=== PATIENT | male | born 1965 | race Caucasian/White ===

== ENCOUNTER 2018-10-23 12:09 | Outpatient (CLI) | payer BC ==
--- NOTE | 2018-10-23 15:40 | Diagnostic Imaging Report ---
Indication: Lower back pain Technique: 4 views of the lumbar spine Comparison: None Findings: Vertebral body heights are preserved. There are degenerative changes of the T11-12 disc. The lumbar vertebral discs are preserved. No acute fractures. No dislocations. The pedicles are intact. The sacral arches are preserved. The sacroiliac joint spaces are preserved. There is facet arthrosis at L5-S1 on the right Impression: No acute bony trauma Mild degenerative changes as described
== END 2018-10-23 14:09 | disposition home or self-care (01) ==
LOC: RAD 12:09
DX: M54.5 Low back pain (principal); M47.9 Spondylosis, unspecified
CPT/HCPCS: 72114

== ENCOUNTER 2018-12-06 13:58 | Inpatient (IN) | payer OTHER ==
[~2018-12-06] VITALS: Ht 185.4 cm; Wt 89.8 kg
--- NOTE | 2019-01-12 18:48 | History & Physical ---
History and Physical History & Physicial Full H&P dictated #[id number]. 53 yo male with well-controlled HIV infection admitted for second of five scheduled doses of IP per [facility] [id number]. He is feeling well. O: HEENT: nc/at Lungs: clear Cor: reg Abd: soft, NT Neuro: non-focal Ext: no c/c/e Skin: no rashes A: HIV, well controlled h/o anal dysplasia h/o HSV Participation in clinical trial P: Admit per protocol; plan on AM infusion. All pt questions were addressed; he gives consent and wishes to proceed. Rikki Landis MD Jan 12, 2019 18:48
--- NOTE | 2019-01-12 20:00 | NUR ---
NURSE NOTES: Pt is a direct admit from home for clinical trial. No acute distress noted. Pt is awake , alert, ambulatory. Vitals stable. Admission process initiated. Orders acknowledged from Dr. Landis. Blood taken down to lab for cbc. Pt's med's submitted to hospital pharmacy to dispense as ordered.Pt is given a sandwich to eat. Pt appears to be comfortable in his bed. Bed l;ow ion position,side rails up and call light within reach. Pt will be monitored.
[2019-01-12 20:30] LABS: EOSINOPHILS % (AUTO) 2.8 % (0.0-3.0); HEMATOCRIT 45.9 % (42.0-52.0); HEMOGLOBIN 15.9 G/DL (14.2-18.0); LYMPHOCYTES % (AUTO) 35.1 % (20.0-45.0); MEAN CORPUSCULAR VOLUME 93 FL (80-99); MONOCYTES % (AUTO) 9.9 % (1.0-10.0); NEUTROPHILS % (AUTO) 51.1 % (45.0-75.0); PLATELET COUNT 275 K/UL (150-450); RED BLOOD COUNT 4.91 M/UL (4.70-6.10); RED CELL DISTRIBUTION WIDTH 10.8 % (11.6-14.8); WHITE BLOOD COUNT 6.4 K/UL (4.8-10.8)
[2019-01-12 20:52] VITALS: BP 132/85
--- NOTE | 2019-01-12 22:45 | History and Physical Report ---
DATE OF ADMISSION: 01/12/2019 CHIEF COMPLAINT: The patient is electively admitted for continuing participation in [employer] clinical protocol [id number]. HISTORY OF PRESENT ILLNESS: The patient is a 53-year-old man followed by Dr. Alok Live for HIV infection. This has been well controlled on Odefsey. He has never had a history of virologic failure. PAST MEDICAL HISTORY: He was diagnosed with HIV a decade ago. He has been on Odefsey for several years with good virologic control. The patient also has a history of anal dysplasia, prostate enlargement, vitamin D deficiency, recurrent herpes simplex, and asymptomatic diverticulosis. FAMILY HISTORY: The patient is adopted. SOCIAL HISTORY: The patient does not smoke. 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 ALLERGIES: No known drug allergies. MEDICATIONS: Include Odefsey one tablet daily, Valtrex 1 g once a day, venlafaxine 75 mg a day, and finasteride 5 mg a day. REVIEW OF SYSTEMS: Denies headache. Denies fever. Denies chills. Denies cough or shortness of breath. No nausea, vomiting, or diarrhea. No chest pain. No visual changes. No auditory changes. PHYSICAL EXAMINATION: VITAL SIGNS: Pending. GENERAL: Revealed a well-nourished and well-developed male in no acute distress. He is alert and oriented x4. HEENT: Normocephalic, atraumatic. Pupils equal and round. Oropharynx was without thrush. NECK: Supple. There is no cervical or axillary adenopathy. LUNGS: Clear to auscultation. HEART: Regular rhythm without murmurs. ABDOMEN: Soft and nontender. No hepatosplenomegaly. EXTREMITIES: Without cyanosis, clubbing, or edema. There are no rashes present today. LABORATORY DATA: Pending. IMPRESSION: 1. HIV infection, well controlled. 2. Elective admission for participation in the above-captioned trial. 3. History of herpes simplex. 4. History of anal dysplasia. 5. Vitamin D deficiency, treated. 6. Hyperlipidemia. 7. Prostate enlargement. DISCUSSION: The patient is a very pleasant 53-year-old man who is electively admitted for his second of 5 infusions of the investigational product disease (versus placebo). Risks and benefits were discussed with the patient in detail. The patient verbalized understanding and his consent to proceed with the clinical trial. PLAN: 1. Manage per protocol. 2. We will plan on infusion tomorrow morning with the following two nights observation in the hospital. Rikki Landis M.D. DR: ALICIA JOB#: [id number] CC: Rikki Landis M.D.; [address] [place] [address], [address]; ; [place] [address], ; Fax#: [phone] [facility]
[2019-01-13] VITALS: BP 123/69
--- NOTE | 2019-01-13 01:00 | NUR ---
NURSE NOTES: Pt is in bed, asleep. No acute distress noted.
[2019-01-13] MEDS ORDERED: VALACYCLOVIR500 MG ORAL (02:53)
[2019-01-13] MEDS ORDERED: odefsey PO (02:56)
[2019-01-13] MEDS ORDERED: VENLAFAXINE HCL75 MG ORAL (02:58)
[2019-01-13] MEDS ORDERED: EFFEXOR XR150 MG ORAL (03:02)
[2019-01-13] MEDS ORDERED: FINASTERIDE5 MG ORAL (03:03)
[2019-01-13 04:00] VITALS: BP 127/75
--- NOTE | 2019-01-13 07:10 | NUR ---
HAND-OFF: Report given to Jessi Mcdonough RN.
[2019-01-13] MEDS ORDERED: Investigational Drug 150 MG in NS 48 ML IV ONE (08:00)
--- NOTE | 2019-01-13 08:23 | NUR ---
NURSE NOTES: Pt in bed a/o x 4 in no acute distress. Pt aware he is here for clinical trial, pt of Dr. Landis. Pt denies pain/discomfort at this time. Dr. Landis at bedside and administered trial medication. Pt left in bed in low position, call light within reach. Will continue to monitor.
[2019-01-13 12:00] VITALS: BP 116/75
--- NOTE | 2019-01-13 12:11 | NUR ---
CASE MANAGEMENT:REVIEW 53 YR OLD MALE HERE FOR CLINICAL TRAIL IS: Close CLINICAL PROTOCOL [id number] : MED/SURG UNIT
[2019-01-13] MEDS: ODEFSEY ORAL SCH (12:29)
[2019-01-13] MEDS: VENLAFAXINE ORAL SCH (12:30)
[2019-01-13] MEDS: VALACYCLOVIR 1 GM ORAL SCH (12:30)
[2019-01-13] MEDS: FINASTERIDE 5 MG ORAL SCH (12:31)
[2019-01-13] MEDS: VENLAFAXINE 75 MG ORAL SCH (12:31)
--- NOTE | 2019-01-13 14:57 | General Progress Note ---
Progress Note Progress Note S: Patient doing well with no new complaints. Tolerated infusion of IP this morning w/o observed AEs O: VSS, Afebrile HEENT: nc/at Neck: supple Lungs: clear to auscultation Cor: reg Abd: soft, NT Ext: no c/c/e Neuro: no focal motor or sensory deficits Labs Test 01/12/19 20:15 White Blood Count 6.4 K/UL (4.8-10.8) Red Blood Count 4.91 M/UL (4.70-6.10) Hemoglobin 15.9 G/DL (14.2-18.0) Hematocrit 45.9 % (42.0-52.0) Mean Corpuscular Volume 93 FL (80-99) Mean Corpuscular Hemoglobin 32.3 PG (27.0-31.0) Mean Corpuscular Hemoglobin Concent 34.6 G/DL (32.0-36.0) Red Cell Distribution Width 10.8 % (11.6-14.8) Platelet Count 275 K/UL (150-450) Mean Platelet Volume 5.3 FL (6.5-10.1) Neutrophils (%) (Auto) 51.1 % (45.0-75.0) Lymphocytes (%) (Auto) 35.1 % (20.0-45.0) Monocytes (%) (Auto) 9.9 % (1.0-10.0) Eosinophils (%) (Auto) 2.8 % (0.0-3.0) Basophils (%) (Auto) 1.0 % (0.0-2.0) A: 1) Participation in [id number] clinical trial 2) HIV well controlled 3) h/o anal dysplasia 4) h/o HSV 5) depression in remission P: 1) Continue management per clinical trial 2) Anticipate d/c in AM 01/15 3) check CBC in AM locally Rikki Landis MD Jan 13, 2019 14:57
[2019-01-13 16:00] VITALS: BP 108/70
--- NOTE | 2019-01-13 19:30 | NUR ---
NURSE NOTES: Received report from DARRIUS Bowen. Received pt in bed, AOX4, denies pain, no distress noted. Safety measures maintained. Bed in lowest position and locked, side rails up x 2, call light within reach. Will continue to monitor.
--- NOTE | 2019-01-13 19:48 | NUR ---
HAND-OFF: Report given to Porsha Maradiaga RN. Pt left in bed in stable condition, a/o x 4, in no acute distress. Call light within reach
[2019-01-14 02:00] VITALS: BP 122/77
--- NOTE | 2019-01-14 07:09 | NUR ---
HAND-OFF: Report given to DARRIUS Bowen. Pt in stable condition.
[2019-01-14 08:00] VITALS: BP 130/82
--- NOTE | 2019-01-14 08:17 | NUR ---
NURSE NOTES: Pt in bed a/o x 4 in no acute distress having breakfast, bs normoactive, lung sounds clear, . Pt aware he is here for clinical trial, pt of Dr. Landis. Pt denies pain/discomfort at this time. Pt left in bed in low position, call light within reach. Will continue to monitor.
[2019-01-14 08:40] LABS: BASOPHILS % (AUTO) 0.8 % (0.0-2.0); HEMATOCRIT 47.2 % (42.0-52.0); HEMOGLOBIN 15.7 G/DL (14.2-18.0); MEAN CORPUSCULAR VOLUME 94 FL (80-99); NEUTROPHILS % (AUTO) 62.1 % (45.0-75.0); PLATELET COUNT 261 K/UL (150-450); RED BLOOD COUNT 5.03 M/UL (4.70-6.10); RED CELL DISTRIBUTION WIDTH 10.7 % (11.6-14.8); WHITE BLOOD COUNT 6.2 K/UL (4.8-10.8)
[2019-01-14] MEDS: VENLAFAXINE ORAL SCH (09:16)
[2019-01-14] MEDS: VENLAFAXINE 75 MG ORAL SCH (09:17)
[2019-01-14] MEDS: ODEFSEY ORAL SCH (09:18)
[2019-01-14] MEDS: FINASTERIDE 5 MG ORAL SCH (09:18)
[2019-01-14] MEDS: VALACYCLOVIR 1 GM ORAL SCH (09:19)
[2019-01-14 12:02] VITALS: BP 125/81
--- NOTE | 2019-01-14 12:46 | General Progress Note ---
Progress Note Progress Note S: Patient doing well, no new complaints O: VSS Afebrile HEENT: nc/at Lungs: clear Cor: reg no murmur Abd: soft, NT, no HSM Ext: no c/c/e Skin: no rashes Labs Test 01/12/19 20:15 01/14/19 08:15 White Blood Count 6.4 K/UL (4.8-10.8) 6.2 K/UL (4.8-10.8) Red Blood Count 4.91 M/UL (4.70-6.10) 5.03 M/UL (4.70-6.10) Hemoglobin 15.9 G/DL (14.2-18.0) 15.7 G/DL (14.2-18.0) Hematocrit 45.9 % (42.0-52.0) 47.2 % (42.0-52.0) Mean Corpuscular Volume 93 FL (80-99) 94 FL (80-99) Mean Corpuscular Hemoglobin 32.3 PG (27.0-31.0) 31.3 PG (27.0-31.0) Mean Corpuscular Hemoglobin Concent 34.6 G/DL (32.0-36.0) 33.3 G/DL (32.0-36.0) Red Cell Distribution Width 10.8 % (11.6-14.8) 10.7 % (11.6-14.8) Platelet Count 275 K/UL (150-450) 261 K/UL (150-450) Mean Platelet Volume 5.3 FL (6.5-10.1) 5.7 FL (6.5-10.1) Neutrophils (%) (Auto) 51.1 % (45.0-75.0) 62.1 % (45.0-75.0) Lymphocytes (%) (Auto) 35.1 % (20.0-45.0) 28.0 % (20.0-45.0) Monocytes (%) (Auto) 9.9 % (1.0-10.0) 6.0 % (1.0-10.0) Eosinophils (%) (Auto) 2.8 % (0.0-3.0) 3.0 % (0.0-3.0) Basophils (%) (Auto) 1.0 % (0.0-2.0) 0.8 % (0.0-2.0) A: 1) Participation in clinical trial - no AEs noted 2) HIV, well controlled 3) h/o anal dysplasia 4) h/o HSV 5) depression, controlled P: 1) Continue to observe per [id number] protocol 2) anticipate discharge in morning 3/ if stable Rikki Landis MD Jan 14, 2019 12:46
--- NOTE | 2019-01-14 13:02 | NUR ---
CASE MANAGEMENT:REVIEW 01/14/19 CLINICAL TRIAL
--- NOTE | 2019-01-14 15:47 | NUR ---
NURSE NOTES: Report given to Анна charge nurse, pt left in stable condition, a/o x 4 in no acute distress.
[2019-01-14 16:00] VITALS: BP 130/88
--- NOTE | 2019-01-14 16:00 | NUR ---
NURSE NOTES: Receive patient alert and oriented,sitting up in bed on personal computer,no complaints at this time,call light within reach.
--- NOTE | 2019-01-14 19:00 | NUR ---
NURSE NOTES: Patient resting,no complaints offered at this time when asked.Call light within reach.
--- NOTE | 2019-01-14 19:20 | NUR ---
HAND-OFF: Report given to EDWARDO RIZO.
--- NOTE | 2019-01-14 19:30 | NUR ---
NURSE NOTES: Received report from DARRIUS Fan. Received pt sitting up in bed, AOX4, denies any pain, no distress noted. Bed in lowest position and locked, side rails up x 2, call light within reach. Will continue to monitor.
[2019-01-14 20:00] VITALS: BP 132/88
--- NOTE | 2019-01-15 07:13 | NUR ---
NURSE NOTES: Endorsed to DARRIUS Cuello. Discharge instructions and own medications given to patient, verbalized understanding. Patient in stable condition.
--- NOTE | 2019-01-15 07:16 | NUR ---
HAND-OFF: Report given to DARRIUS Cuello.
--- NOTE | 2019-01-15 08:00 | NUR ---
NURSE NOTES:RECEIVED PATIENT AWAKE A/OX4,ROOM AIR, ON INITIAL ROUNDS,NO C/O PAIN.FOR DISCHARGE,D/C INSTRUCTIONS,HOME MEDS,BELONGINGS GIVEN BY NIGHT RN(EDWARDO ORTA)
[2019-01-15 08:23] LABS: EOSINOPHILS % (AUTO) 2.9 % (0.0-3.0); HEMATOCRIT 47.8 % (42.0-52.0); HEMOGLOBIN 16.4 G/DL (14.2-18.0); LYMPHOCYTES % (AUTO) 32.1 % (20.0-45.0); MEAN CORPUSCULAR VOLUME 93 FL (80-99); PLATELET COUNT 282 K/UL (150-450); RED BLOOD COUNT 5.16 M/UL (4.70-6.10); WHITE BLOOD COUNT 6.3 K/UL (4.8-10.8)
[2019-01-15] MEDS ORDERED: Tubing IV Secondary IV ONE (09:19)
[2019-01-15] MEDS ORDERED: NS 275ml ONE (09:19)
--- NOTE | 2019-01-15 09:20 | NUR ---
NURSE NOTES:PATIENT WENT HOME STABLE.
--- NOTE | 2019-01-21 22:46 | Discharge Summary ---
DATE OF ADMISSION: 01/12/2019 DATE OF DISCHARGE: 01/15/2019 DISCHARGE DIAGNOSES: 1. Human immunodeficiency virus infection, well controlled. 2. Elective admission for participation in [employer] clinical trial [id number]. 3. History of vitamin D deficiency, treated. 4. Hyperlipidemia. 5. Prostate enlargement. 6. History of anal dysplasia. HISTORY OF PRESENT ILLNESS/HOSPITAL COURSE: The patient was admitted electively on 01/12/2019 for the second of 5 planned biweekly infusions of investigational agent (either [id number] or placebo). The patient was infused on the 01/13/2019 and did well. There were no major adverse events. The patient was monitored closely and was discharged on 01/15/2019 in good condition. MEDICATIONS AT DISCHARGE: Included Odefsey 1 tablet daily, Valtrex 1 gram once a day, venlafaxine 75 mg a day, and finasteride 5 mg a day. Follow-up will be in the clinic in 2 days duration. Rikki Landis M.D. DR: CATHERINE JOB#: [id number] CC: [email or web address]
== END 2019-01-15 09:20 | disposition home or self-care (01) | DRG 977 ==
LOC: 3E 01-12 19:13
DX: B20 Human immunodeficiency virus [HIV] disease (principal); Z00.6 Encounter for examination for normal comparison and control in clinical research program; E78.5 Hyperlipidemia, unspecified; N40.0 Benign prostatic hyperplasia without lower urinary tract symptoms; K57.90 Diverticulosis of intestine, part unspecified, without perforation or abscess without bleeding
CPT/HCPCS: 36415; 85025

== ENCOUNTER 2018-12-29 14:49 | Inpatient (IN) | payer OTHER ==
[~2018-12-29] VITALS: Ht 185.4 cm; Wt 89.6 kg
--- NOTE | 2018-12-29 15:30 | NUR ---
NURSE NOTES: Instructed by Dr Landis's nurse Alessandro that her and Dr Landis's nurses will do all vitals and IV insertion. Will continue to monitor.
--- NOTE | 2018-12-29 15:30 | NUR ---
NURSE NOTES: Patient admitted to unit as ordered for clinical trials. Patient is stable, no s/s acute distress. Denies pain at this time. No SOB or discomfort noted at this time. Patient oriented to room, unit, and nurses. Patient instructed to use call light for assistance, verbalized understanding. All orders noted. Patient in bed in locked position and call light within reach. All needs met at this time. Will continue to monitor.
--- NOTE | 2018-12-29 15:54 | History & Physical ---
History and Physical History & Physicial Full note dictated #[id number] 53 yo with well controlled HIV on Odefsey electively admitted for participation in [id number]. He feels well. PE: T 98.1 HEENT: nc/at Lungs: clear Cor: reg Abd: soft, NT Neuro: non-focal Skin: very faint areas of hypopigmentation on flanks of trunk, much improved compared to 2 weeks ago A: 1) HIV, well-controlled 2) LUTS 3) depression, controlled 4) HSV P: Will proceed per protocol; risks and benefits discussed in detail and pt verbalized understanding and wishes to go forward. We will plan on infusing tomorrow. Rikki Landis MD Dec 29, 2018 15:53
[2018-12-29 16:57] LABS: BASOPHILS % (AUTO) 1.3 % (0.0-2.0); EOSINOPHILS % (AUTO) 1.4 % (0.0-3.0); HEMATOCRIT 47.4 % (42.0-52.0); HEMOGLOBIN 16.2 G/DL (14.2-18.0); LYMPHOCYTES % (AUTO) 39.3 % (20.0-45.0); MEAN CORPUSCULAR VOLUME 93 FL (80-99); MONOCYTES % (AUTO) 8.2 % (1.0-10.0); NEUTROPHILS % (AUTO) 49.8 % (45.0-75.0); PLATELET COUNT 270 K/UL (150-450); RED BLOOD COUNT 5.08 M/UL (4.70-6.10); RED CELL DISTRIBUTION WIDTH 10.8 % (11.6-14.8); WHITE BLOOD COUNT 6.2 K/UL (4.8-10.8)
[2018-12-29] MEDS ORDERED: ODEFSEY ORAL SCH (18:00)
--- NOTE | 2018-12-29 19:15 | History and Physical Report ---
DATE OF ADMISSION: 12/29/2018 CHIEF COMPLAINT: The patient is electively admitted for participation in [employer] protocol, [id number]. HISTORY OF PRESENT ILLNESS: The patient is a 53-year-old man followed by my associate, Dr. Alok Live for HIV infection, which is well controlled on Odefsey. He has been Dr. Live's patient for a number of years and has elected to participate in the above clinical trial. PAST MEDICAL HISTORY: The patient was diagnosed with HIV a decade ago or so. He has been on Odefsey for several years and it has been undetectable. There is a history of anal dysplasia, prostate enlargement, vitamin D deficiency, recurrent herpes simplex, and diverticulitis, which is not active. FAMILY HISTORY: The patient is adopted. SOCIAL HISTORY: The patient does not smoke. 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 ALLERGIES: No known drug allergies. MEDICATIONS: As an outpatient include Odefsey one daily, Valtrex 1 g once a day, venlafaxine 75 mg daily, and finasteride 5 mg once a day. REVIEW OF SYSTEMS: He denies fever, headache, or visual changes. Denies oral pain. Denies cough or shortness of breath. Denies chest pain. No nausea, vomiting, or diarrhea. No dysuria or hematuria. The patient reports a mild skin rash in his trunk a couple weeks ago, which has resolved. PHYSICAL EXAMINATION: VITAL SIGNS: Temperature of 98.1, heart rate of 86, blood pressure of 112/73. His weight was 197.6 pounds and his respirations were 15 and nonlabored. HEENT: Normocephalic and atraumatic. Pupils are equal, round, and reactive. Oropharynx was without thrush. NECK: Supple. LUNGS: Clear to auscultation. HEART: Regular rhythm without murmurs or gallops. ABDOMEN: Soft and nontender. There is no hepatosplenomegaly noted. EXTREMITIES: Without cyanosis, clubbing, or edema. NEUROLOGIC: Grossly nonfocal. SKIN: For the most part, normal. There was no significant rash present at the location the patient reported his rash for a couple weeks ago. LABORATORY DATA: Pending. IMPRESSION: 1. HIV infection, well controlled. 2. Anal dysplasia. 3. Herpes simplex, recurrent. 4. Vitamin D deficiency, treated. 5. Hyperlipidemia. 6. Depression. 7. Prostate enlargement. 8. Participation in clinical research trial. DISCUSSION: The patient is a pleasant 53-year-old man who is now electively admitted for participation in [id number]. I have discussed risks and benefits with the patient in detail. The patient has elected to proceed with drug study. He will be admitted now and infused tomorrow morning and will spend two nights in the hospital after that. PLAN: 1. Management per protocol. 2. Continue outpatient medications as listed above. Rikki Landis M.D. DR: MIKAL JOB#: [id number] CC: Rikki Landis M.D.; [address] [place] [address], [facility] [address]; [place] [address]; Fax#: [phone]
--- NOTE | 2018-12-29 19:40 | NUR ---
NURSE NOTES: Report taken from DARRIUS Santiago. Patient A&Ox4 in bed. No signs of distress on room air. Here for Clinical trial. Per MD order, no vitals on patient overnight. IV line access will be put in the AM, per trial nurse DARRIUS Mistry. Monitor overnight. Call light within reach, bed in lowest position.
--- NOTE | 2018-12-29 19:49 | NUR ---
HAND-OFF: Report given to Braxton RIZO. Patient is stable.
[2018-12-29] MEDS ORDERED: VALACYCLOVIR 1 GM ORAL SCH (21:00)
[2018-12-29] MEDS ORDERED: VENLAFAXINE ORAL SCH (21:00)
--- NOTE | 2018-12-30 07:15 | NUR ---
HAND-OFF: Report given to DARRIUS Richards.
--- NOTE | 2018-12-30 07:26 | NUR ---
NURSE NOTES: ASLEEP. IN NO APPARENT DISTRESS. NO PAIN.
[2018-12-30 08:00] VITALS: BP 121/73
[2018-12-30] MEDS ORDERED: Investigational Drug 150 MG in NS 48 ML IV ONE (08:00)
[2018-12-30] MEDS ORDERED: FINASTERIDE 5 MG ORAL SCH ×2 (09:00→12:00)
[2018-12-30] MEDS ORDERED: ODEFSEY ORAL SCH (09:00)
[2018-12-30] MEDS ORDERED: VENLAFAXINE 150 MG ORAL SCH (12:00)
[2018-12-30] MEDS ORDERED: TENOFOVIR ALAFENAMIDE ORAL SCH (12:00)
[2018-12-30] MEDS ORDERED: VALACYCLOVIR 1 GM ORAL SCH (12:00)
[2018-12-30] MEDS ORDERED: EMTRICITABINE ORAL SCH (12:00)
[2018-12-30] MEDS ORDERED: RILPIVIRINE ORAL SCH (12:00)
[2018-12-30] MEDS ORDERED: Venlafaxine XR 75mg cap ORAL SCH (12:30)
--- NOTE | 2018-12-30 13:54 | NUR ---
*-* NO INSURANCE INFORMATION IN THE BAR TO SEND CLINICALS OR REVIEWS *-*
--- NOTE | 2018-12-30 15:30 | General Progress Note ---
Progress Note Progress Note S: pt had infusion of IP this morning without any AEs noted. He feels well. O: VSS Afebrile HEENT: nc/at Neck: supple Lungs: clear Cor: reg no murmur Abd: soft, NT BS normal Ext: no c/c/e Neuro: non-focal Labs Test 12/29/18 15:00 White Blood Count 6.2 K/UL (4.8-10.8) Red Blood Count 5.08 M/UL (4.70-6.10) Hemoglobin 16.2 G/DL (14.2-18.0) Hematocrit 47.4 % (42.0-52.0) Mean Corpuscular Volume 93 FL (80-99) Mean Corpuscular Hemoglobin 32.0 PG (27.0-31.0) Mean Corpuscular Hemoglobin Concent 34.3 G/DL (32.0-36.0) Red Cell Distribution Width 10.8 % (11.6-14.8) Platelet Count 270 K/UL (150-450) Mean Platelet Volume 5.5 FL (6.5-10.1) Neutrophils (%) (Auto) 49.8 % (45.0-75.0) Lymphocytes (%) (Auto) 39.3 % (20.0-45.0) Monocytes (%) (Auto) 8.2 % (1.0-10.0) Eosinophils (%) (Auto) 1.4 % (0.0-3.0) Basophils (%) (Auto) 1.3 % (0.0-2.0) A: 1) Participation in [id number] 2) HIV, well controlled on Odefsey 3) depression 4) h/o HSV P: 1) continue to observe per protocol; anticipate discharge 01/01 Rikki Landis MD Dec 30, 2018 15:30
[2018-12-30 16:00] VITALS: BP 119/75
--- NOTE | 2018-12-30 19:00 | NUR ---
NURSE NOTES: RESTING. IN NO APPARENT DISTRESS.
--- NOTE | 2018-12-30 19:09 | NUR ---
HAND-OFF: Report given to Mino THAKKAR LVN.
[2018-12-30 20:00] VITALS: BP 135/79
[2018-12-30] MEDS: VENLAFAXINE 75 MG ORAL SCH (20:35)
[2018-12-31 01:47] VITALS: BP 125/73
[2018-12-31 02:00] VITALS: BP 125/73
--- NOTE | 2018-12-31 07:48 | NUR ---
HAND-OFF: Report given to ELFIE Patient in stable conditions .
[2018-12-31 08:00] VITALS: BP 118/83
[2018-12-31] MEDS: VENLAFAXINE 75 MG ORAL SCH (08:01)
[2018-12-31 08:54] LABS: BASOPHILS % (AUTO) 0.9 % (0.0-2.0); HEMATOCRIT 44.9 % (42.0-52.0); HEMOGLOBIN 15.7 G/DL (14.2-18.0); LYMPHOCYTES % (AUTO) 37.1 % (20.0-45.0); MEAN CORPUSCULAR VOLUME 94 FL (80-99); MONOCYTES % (AUTO) 6.2 % (1.0-10.0); NEUTROPHILS % (AUTO) 53.8 % (45.0-75.0); PLATELET COUNT 245 K/UL (150-450); RED BLOOD COUNT 4.79 M/UL (4.70-6.10); RED CELL DISTRIBUTION WIDTH 10.9 % (11.6-14.8); WHITE BLOOD COUNT 5.4 K/UL (4.8-10.8)
--- NOTE | 2018-12-31 09:14 | NUR ---
NURSE NOTES: Received patient from DARRIUS Contreras stable condition seating on bed and working on computer. patient reported he takes all his home medication in the morning RN verified with DR. Landis and medication scheduled and rescheduled and given.
--- NOTE | 2018-12-31 10:09 | NUR ---
HAND-OFF: Report given to Anamika Srivastava RN.
--- NOTE | 2018-12-31 10:30 | NUR ---
NURSE NOTES: Received patient from DARRIUS Fernández. Patient in stable condition. Will continue to monitor.
[2018-12-31 12:00] VITALS: BP 129/87
[2018-12-31] MEDS ORDERED: Tubing IV Secondary IV ONE (15:35)
[2018-12-31] MEDS ORDERED: NS 275ml ONE (15:35)
[2018-12-31 16:00] VITALS: BP 123/75
--- NOTE | 2018-12-31 17:06 | General Progress Note ---
Progress Note Progress Note S: pt doing well, no new complaints O: VSS Afebrile HEENT: nc/at Lungs: clear a/ Cor: reg Abd: soft, NT Neuro: non-focal Skin: no rash Ext: no c/c/e Labs Test 12/29/18 15:00 12/31/18 08:25 White Blood Count 6.2 K/UL (4.8-10.8) 5.4 K/UL (4.8-10.8) Red Blood Count 5.08 M/UL (4.70-6.10) 4.79 M/UL (4.70-6.10) Hemoglobin 16.2 G/DL (14.2-18.0) 15.7 G/DL (14.2-18.0) Hematocrit 47.4 % (42.0-52.0) 44.9 % (42.0-52.0) Mean Corpuscular Volume 93 FL (80-99) 94 FL (80-99) Mean Corpuscular Hemoglobin 32.0 PG (27.0-31.0) 32.8 PG (27.0-31.0) Mean Corpuscular Hemoglobin Concent 34.3 G/DL (32.0-36.0) 34.9 G/DL (32.0-36.0) Red Cell Distribution Width 10.8 % (11.6-14.8) 10.9 % (11.6-14.8) Platelet Count 270 K/UL (150-450) 245 K/UL (150-450) Mean Platelet Volume 5.5 FL (6.5-10.1) 6.2 FL (6.5-10.1) Neutrophils (%) (Auto) 49.8 % (45.0-75.0) 53.8 % (45.0-75.0) Lymphocytes (%) (Auto) 39.3 % (20.0-45.0) 37.1 % (20.0-45.0) Monocytes (%) (Auto) 8.2 % (1.0-10.0) 6.2 % (1.0-10.0) Eosinophils (%) (Auto) 1.4 % (0.0-3.0) 2.0 % (0.0-3.0) Basophils (%) (Auto) 1.3 % (0.0-2.0) 0.9 % (0.0-2.0) A: 1) HIV-well controlled 2) participation in clinical trial 3) hyperlipidemia 4) vit D deficiency 5) depression P: 1) Continue per [id number] protocol 2) Plan for d/c tomorrow in AM if stable Rikki Landis MD Dec 31, 2018 17:06
--- NOTE | 2018-12-31 19:31 | NUR ---
HAND-OFF: Report given to Malik Felton RN.
[2018-12-31 20:00] VITALS: BP 129/77
--- NOTE | 2018-12-31 20:30 | NUR ---
NURSE NOTES: Pt is in bed, awake and alert. No acute distress noted. Vitas stable. Bed low in position,side rails up and call light within reach. Pt will be monitored.
[2019-01-01] VITALS: BP 131/77
--- NOTE | 2019-01-01 01:18 | NUR ---
NURSE NOTES: Pt is in bed, asleep. No acute distress noted. Vitals stable. Dr. Landis called and ordered to discharge patient in the morning around 0800 am after the CBC result. Pt will be monitored.
--- NOTE | 2019-01-01 07:10 | NUR ---
HAND-OFF: Report given to Mann Mackenzie RN. Pt is to be discharged home after the cbc result.
--- NOTE | 2019-01-01 08:00 | NUR ---
NURSE NOTES: Received patient on bed, awake. No IV site. No signs of respiratory distress or pain. Bed in low and locked position, call light within reach. Room board updated, will continue to monitor.
[2019-01-01 08:37] LABS: BASOPHILS % (AUTO) 1.1 % (0.0-2.0); EOSINOPHILS % (AUTO) 2.9 % (0.0-3.0); HEMATOCRIT 47.3 % (42.0-52.0); HEMOGLOBIN 16.2 G/DL (14.2-18.0); LYMPHOCYTES % (AUTO) 34.1 % (20.0-45.0); MEAN CORPUSCULAR VOLUME 94 FL (80-99); MONOCYTES % (AUTO) 8.4 % (1.0-10.0); NEUTROPHILS % (AUTO) 53.5 % (45.0-75.0); PLATELET COUNT 269 K/UL (150-450); RED BLOOD COUNT 5.02 M/UL (4.70-6.10); RED CELL DISTRIBUTION WIDTH 10.9 % (11.6-14.8); WHITE BLOOD COUNT 6.3 K/UL (4.8-10.8)
[2019-01-01] MEDS: VENLAFAXINE 75 MG ORAL SCH (09:13)
--- NOTE | 2019-01-01 09:30 | NUR ---
NURSE NOTES: Patient discharged. patient belongings returned and inventoried. Personal medications returned. patient kept comfortable at all times and patient needs met.
--- NOTE | 2019-01-01 15:30 | Discharge Summary ---
DATE OF ADMISSION: 12/29/2018 DATE OF DISCHARGE: 01/01/2019 DISCHARGE DIAGNOSES: 1. Participation in [email or web address] clinical trial [id number]. 2. HIV infection, well controlled. 3. Recurrent herpes simplex. 4. Anal dysplasia. 5. Vitamin D deficiency. 6. Hyperlipidemia. 7. Symptomatic prostatic enlargement. 8. Depression. HISTORY OF PRESENT ILLNESS AND HOSPITAL COURSE: The patient is a very pleasant 53-year-old man, who is participating in the above captioned clinical trial. As part of this, he came into the hospital for an infusion of the investigational product or placebo. He tolerated the infusion well and his vital signs and laboratory were stable with no adverse events noted. The patient was discharged in good condition to home. He will be followed up in the office next week. He will also be readmitted here on the for another infusion, second in the series of five. The patient was given an opportunity to verbalize questions and all issues raised were addressed. DISCHARGE MEDICATIONS: Include Odefsey one tablet once a day, Valtrex 1 g once a day, venlafaxine 75 and 150 mg tablets daily, and finasteride 5 mg once a day. Rikki Landis M.D. DR: VIJAY JOB#: [id number] CC: Rikki Landis M.D.; [address] [place] [address], [facility] [address] [address]; Fax#: [phone]
== END 2019-01-01 09:30 | disposition home or self-care (01) | DRG 976 ==
LOC: 3E 14:49
DX: B20 Human immunodeficiency virus [HIV] disease (principal); B00.9 Herpesviral infection, unspecified; Z00.6 Encounter for examination for normal comparison and control in clinical research program; F32.9 Major depressive disorder, single episode, unspecified; N40.0 Benign prostatic hyperplasia without lower urinary tract symptoms; K62.82 Dysplasia of anus; E78.5 Hyperlipidemia, unspecified; E55.9 Vitamin D deficiency, unspecified
CPT/HCPCS: 36415; 85025

== ENCOUNTER 2019-01-26 14:57 | Inpatient (IN) | payer OTHER ==
[~2019-01-26] VITALS: Ht 185.4 cm; Wt 88.9 kg
[~2019-01-26 14:57] MED LIST: EFFEXOR XR150 MG ORAL; FINASTERIDE5 MG ORAL; VALACYCLOVIR500 MG ORAL; VENLAFAXINE HCL75 MG ORAL; odefsey PO
--- NOTE | 2019-01-26 15:30 | NUR ---
NURSE NOTES: received a direct admit patient from Dr. Landis clinical trial. pt a/a/o x4 ambulatory with no signs of distress or other issues at this time. RN will verify orders and carry on. call light within reach. bed in lowest positions. bed side rales up x2. i will f/u as needed.
[2019-01-26 15:46] LABS: BASOPHILS % (AUTO) 1.1 % (0.0-2.0); EOSINOPHILS % (AUTO) 2.4 % (0.0-3.0); HEMATOCRIT 45.7 % (42.0-52.0); HEMOGLOBIN 15.8 G/DL (14.2-18.0); LYMPHOCYTES % (AUTO) 43.8 % (20.0-45.0); MEAN CORPUSCULAR VOLUME 94 FL (80-99); NEUTROPHILS % (AUTO) 44.8 % (45.0-75.0); PLATELET COUNT 298 K/UL (150-450); RED BLOOD COUNT 4.88 M/UL (4.70-6.10); RED CELL DISTRIBUTION WIDTH 10.9 % (11.6-14.8); WHITE BLOOD COUNT 7.1 K/UL (4.8-10.8)
--- NOTE | 2019-01-26 19:15 | History & Physical ---
History and Physical History & Physicial Full H&P dictated S: no new complaints or AEs noted since last visit O: VSS T 97.8 HEENT: nc/at Lungs: clear Cor: reg, no murmurs Abd: soft, NT Ext: no c/c/e Neuro: nonfocal Skin: no rashes Labs Test 01/26/19 15:20 White Blood Count 7.1 K/UL (4.8-10.8) Red Blood Count 4.88 M/UL (4.70-6.10) Hemoglobin 15.8 G/DL (14.2-18.0) Hematocrit 45.7 % (42.0-52.0) Mean Corpuscular Volume 94 FL (80-99) Mean Corpuscular Hemoglobin 32.3 PG (27.0-31.0) Mean Corpuscular Hemoglobin Concent 34.5 G/DL (32.0-36.0) Red Cell Distribution Width 10.9 % (11.6-14.8) Platelet Count 298 K/UL (150-450) Mean Platelet Volume 5.3 FL (6.5-10.1) Neutrophils (%) (Auto) 44.8 % (45.0-75.0) Lymphocytes (%) (Auto) 43.8 % (20.0-45.0) Monocytes (%) (Auto) 8.0 % (1.0-10.0) Eosinophils (%) (Auto) 2.4 % (0.0-3.0) Basophils (%) (Auto) 1.1 % (0.0-2.0) A: 1) Participation in [id number] 2) HIV, well controlled 3) depression, stable on medication P: 1) proceed per protocol; we will plan on infusing IP tomorrow morning followed by two nights' observation in house. Rikki Landis MD Jan 26, 2019 19:15
--- NOTE | 2019-01-26 19:30 | NUR ---
NURSE NOTES: Report received from DARRIUS Bojorquez. Patient in stable condition. Call light within reach. Encouraged to call as needed.
--- NOTE | 2019-01-26 20:06 | NUR ---
HAND-OFF: Report given to Hiren Thacker RN and Cecilia RIZO. pt in stable condition.
--- NOTE | 2019-01-27 06:35 | NUR ---
NURSE NOTES: Called ER to start IV.
[2019-01-27] MEDS ORDERED: [UNRECOGNIZED DRUG - REMARK] IV ONE ×2 (07:30)
--- NOTE | 2019-01-27 07:30 | NUR ---
HAND-OFF: Report given to DARRIUS Uribe.
--- NOTE | 2019-01-27 08:00 | NUR ---
NURSE NOTES: Received report from Hiren RIZO. Patient is awake alert and oriented x4, no acute distress noted. Investigational drug running through RFA IV, Dr. Landis is present at the bedside for infusion. Clinical trial nurse at the bedside. Side rails upx2, bed low and locked, call light in reach. Will continue to monitor.
[2019-01-27] MEDS: Odefsey 200mg/25mg/25mg ORAL SCH (12:47)
[2019-01-27] MEDS: VALACYCLOVIR 1 GM ORAL SCH (12:47)
[2019-01-27] MEDS: VENLAFAXINE 75 MG ORAL SCH (12:47)
[2019-01-27] MEDS: VENLAFAXINE 150 MG ORAL SCH (12:49)
--- NOTE | 2019-01-27 13:56 | NUR ---
CASE MANAGEMENT:REVIEW 01/27/19 53 YR OLD MALE HERE FOR CLINICAL TRIAL
[2019-01-27 16:00] VITALS: BP 135/81
--- NOTE | 2019-01-27 19:21 | NUR ---
HAND-OFF: Report given to Hiren RIZO. Patient is in stable condition.
--- NOTE | 2019-01-27 21:00 | NUR ---
NURSE NOTES: Patient in bed awake and oriented. No pain noted at this time. Needs attended. Call light within reach. In stable condition.
--- NOTE | 2019-01-27 22:54 | General Progress Note ---
Progress Note Progress Note S: Patient tolerated infusion of IP this morning without significant AEs; he stated he felt tired but that it might have been due to a poor night's sleep last night. Otherwise is doing quite well. O: VSS Afebrile HEENT: nc/at Lungs: clear Cor: reg Abd: soft Ext: no c/c/e Skin: no rashes Neuro: non-focal A: 1) Participation in [email or web address] clinical trial [id number] 2) HIV, well controlled on Odefsey 3) depression, on medication P: 1) continue management per protocol. We will anticipate d/c 01/29 in AM 2) CBC in AM Rikki Landis MD Jan 27, 2019 22:54
--- NOTE | 2019-01-28 07:30 | NUR ---
NURSE NOTES: Patient is awake alert and oriented x4, no acute distress noted. In bed eating breakfast. Side rails upx2, bed low and locked, call light in reach. Will continue to monitor.
[2019-01-28 08:00] VITALS: BP 129/88
[2019-01-28 08:20] LABS: EOSINOPHILS % (AUTO) 3.1 % (0.0-3.0); HEMATOCRIT 49.2 % (42.0-52.0); LYMPHOCYTES % (AUTO) 30.5 % (20.0-45.0); MEAN CORPUSCULAR VOLUME 93 FL (80-99); MONOCYTES % (AUTO) 9.2 % (1.0-10.0); NEUTROPHILS % (AUTO) 56.2 % (45.0-75.0); PLATELET COUNT 275 K/UL (150-450); RED BLOOD COUNT 5.27 M/UL (4.70-6.10); WHITE BLOOD COUNT 6.5 K/UL (4.8-10.8)
[2019-01-28] MEDS: VALACYCLOVIR 1 GM ORAL SCH (08:43)
[2019-01-28] MEDS: Odefsey 200mg/25mg/25mg ORAL SCH (08:43)
[2019-01-28] MEDS: VENLAFAXINE 75 MG ORAL SCH (08:43)
[2019-01-28] MEDS: VENLAFAXINE 150 MG ORAL SCH (08:44)
[2019-01-28 12:00] VITALS: BP 133/91
--- NOTE | 2019-01-28 13:14 | History and Physical Report ---
DATE OF ADMISSION: 01/26/2019 CHIEF COMPLAINT: The patient is electively admitted for the third of planned 5 biweekly infusions as part of [employer] clinical trial, [id number]. HISTORY OF PRESENT ILLNESS: The patient is a 53-year-old man with well-controlled human immunodeficiency virus infection. He has elected to participate in the above clinical trial and is now electively admitted for his third of 5 planned infusions. Since his last hospitalization two weeks ago, he has had no adverse events. PAST MEDICAL HISTORY: The patient was diagnosed with human immunodeficiency virus many years ago and has been on Odefsey for several years. He has never had virologic failure. There is a history of prostate enlargement, diverticulosis, recurrent herpes simplex, and anal dysplasia. FAMILY HISTORY: The patient is adopted. SOCIAL HISTORY: The patient does not smoke. 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 ALLERGIES: No known drug allergies. MEDICATIONS: Include Odefsey one tablet daily, Valtrex 1 g once a day, venlafaxine 75+ 150 mg a day, and finasteride 5 mg a day. REVIEW OF SYSTEMS: The patient has had no fevers, chills, or night sweats. Denies shortness of breath, chest pain, or cough. Denies nausea, vomiting, or diarrhea. He has not had dysuria or hematuria. No history of altered mental status and no new rashes. PHYSICAL EXAMINATION: GENERAL: Revealed a well-nourished and well-developed male, who is in no acute distress. He is alert and oriented x4. VITAL SIGNS: Include a temperature 97.8, heart rate 74, and blood pressure 124/83. His weight was 201.2 pounds. Respiratory rate was 17. HEENT: Normocephalic and atraumatic. NECK: Supple. LUNGS: Clear to auscultation. HEART: Regular rhythm without murmurs or gallops. ABDOMEN: Soft and nontender. No hepatosplenomegaly. EXTREMITIES: Without cyanosis, clubbing, or edema. SKIN: There were no skin rashes. NEUROLOGIC: Grossly nonfocal for motor or sensory deficits. LABORATORY DATA: CBC is pending from today. IMPRESSION: 1. Participation in clinical trial [id number]. 2. Human immunodeficiency virus infection, well controlled. 3. Diverticulosis, inactive. 4. Herpes simplex, no current outbreak. 5. Anal dysplasia. 6. Depression. DISCUSSION: The patient is a very pleasant 53-year-old gentleman, who is being admitted today as part of his participation in the clinical trial. We will plan to dose him in the morning and observe him the following two nights in the hospital. All questions offered were addressed. The patient continues to provide informed consent for his participation in this trial. PLAN: Manage per protocol. Rikki Landis M.D. DR: ROLAND JOB#: [id number] CC: Rikki Landis M.D.; [address] [facility]; [address]; [place] [address]; Fax#: [phone]
--- NOTE | 2019-01-28 13:20 | NUR ---
*-* NO INSURANCE INFORMATION IN THE BAR UNABLE TO SEND CLINICALS *-*
--- NOTE | 2019-01-28 14:49 | General Progress Note ---
Progress Note Progress Note S: Pt doing well, no new complaints O: VSS, afebrile HEENT: nc/at Neck: supple Lungs; clear to auscultation Cor: reg rhythm no murmurs Abd: soft, NT Skin: no rashes Labs Test 01/26/19 15:20 01/28/19 08:05 White Blood Count 7.1 K/UL (4.8-10.8) 6.5 K/UL (4.8-10.8) Red Blood Count 4.88 M/UL (4.70-6.10) 5.27 M/UL (4.70-6.10) Hemoglobin 15.8 G/DL (14.2-18.0) 17.0 G/DL (14.2-18.0) Hematocrit 45.7 % (42.0-52.0) 49.2 % (42.0-52.0) Mean Corpuscular Volume 94 FL (80-99) 93 FL (80-99) Mean Corpuscular Hemoglobin 32.3 PG (27.0-31.0) 32.3 PG (27.0-31.0) Mean Corpuscular Hemoglobin Concent 34.5 G/DL (32.0-36.0) 34.5 G/DL (32.0-36.0) Red Cell Distribution Width 10.9 % (11.6-14.8) 11.0 % (11.6-14.8) Platelet Count 298 K/UL (150-450) 275 K/UL (150-450) Mean Platelet Volume 5.3 FL (6.5-10.1) 5.8 FL (6.5-10.1) Neutrophils (%) (Auto) 44.8 % (45.0-75.0) 56.2 % (45.0-75.0) Lymphocytes (%) (Auto) 43.8 % (20.0-45.0) 30.5 % (20.0-45.0) Monocytes (%) (Auto) 8.0 % (1.0-10.0) 9.2 % (1.0-10.0) Eosinophils (%) (Auto) 2.4 % (0.0-3.0) 3.1 % (0.0-3.0) Basophils (%) (Auto) 1.1 % (0.0-2.0) 1.0 % (0.0-2.0) A: 1) participation in [id number] 2) well-controlled HIV infection P: 1) manage per protocol, anticipate discharge tomorrow morning if stable Rikki Landis MD Jan 28, 2019 14:49
[2019-01-28 16:00] VITALS: BP 126/79
--- NOTE | 2019-01-28 19:30 | NUR ---
HAND-OFF: Report given to Braxton RIZO. Patient is in stable condition.
--- NOTE | 2019-01-28 19:32 | NUR ---
NURSE NOTES: Report taken from DARRIUS Uribe. Patient awake and in bed, A&Ox4. Here for clinical trial. No IV access as patient is getting D/C tomorrow, aware. Wants to skip 4am vitals so he can sleep. No skin issues present. Bed in lowest position, call light within reach.
[2019-01-28 20:00] VITALS: BP 138/93
[2019-01-29] VITALS: BP 140/88
--- NOTE | 2019-01-29 07:27 | NUR ---
HAND-OFF: Report given to DARRIUS Zaragoza. Patient is awake, VS stable. D/C today.
--- NOTE | 2019-01-29 07:30 | NUR ---
NURSE NOTES: Patient lying in bed awake. No complain of pain or distress at this time. Skin intact and dry. Bed lowest position. Call light within reach. Will continue to monitor.
[2019-01-29] MEDS: Odefsey 200mg/25mg/25mg ORAL SCH (08:21)
[2019-01-29] MEDS: VENLAFAXINE 75 MG ORAL SCH (08:21)
[2019-01-29] MEDS: VENLAFAXINE 150 MG ORAL SCH (08:21)
[2019-01-29] MEDS: VALACYCLOVIR 1 GM ORAL SCH (08:21)
[2019-01-29 08:29] LABS: BASOPHILS % (AUTO) 1.4 % (0.0-2.0); EOSINOPHILS % (AUTO) 3.9 % (0.0-3.0); HEMATOCRIT 49.2 % (42.0-52.0); LYMPHOCYTES % (AUTO) 38.4 % (20.0-45.0); MEAN CORPUSCULAR VOLUME 93 FL (80-99); MONOCYTES % (AUTO) 11.1 % (1.0-10.0); NEUTROPHILS % (AUTO) 45.2 % (45.0-75.0); PLATELET COUNT 289 K/UL (150-450); RED CELL DISTRIBUTION WIDTH 10.9 % (11.6-14.8); WHITE BLOOD COUNT 6.5 K/UL (4.8-10.8)
--- NOTE | 2019-01-29 09:05 | NUR ---
NURSE NOTES: Patient discharged in stable condition. Discharge instruction given to patient and verbalized understanding. Belonging and home medication given to patient. IV and ID removed. Patient ambulated out with all personal belongings with steady gait.
== END 2019-01-29 09:10 | disposition home or self-care (01) | DRG 951 ==
LOC: MERGE 14:57 → 3E 14:57
DX: Z00.6 Encounter for examination for normal comparison and control in clinical research program (principal); Z21 Asymptomatic human immunodeficiency virus [HIV] infection status; N40.0 Benign prostatic hyperplasia without lower urinary tract symptoms; K57.90 Diverticulosis of intestine, part unspecified, without perforation or abscess without bleeding; K62.82 Dysplasia of anus; B00.9 Herpesviral infection, unspecified; F32.9 Major depressive disorder, single episode, unspecified
CPT/HCPCS: 36415; 85025

== ENCOUNTER 2019-02-09 14:19 | Inpatient (IN) | payer OTHER ==
[~2019-02-09] VITALS: Ht 185.4 cm; Wt 89.9 kg
--- NOTE | 2019-02-09 14:30 | NUR ---
NURSE NOTES: Patient admit to unit in stable condition. Alert and oriented x4. No complain of pain or distress. Skin intact and dry. Belonging checked. Bed lowest position. Call light within reach. Will continue to monitor.
[2019-02-09 15:07] LABS: BASOPHILS % (AUTO) 0.9 % (0.0-2.0); EOSINOPHILS % (AUTO) 2.3 % (0.0-3.0); HEMATOCRIT 50.1 % (42.0-52.0); HEMOGLOBIN 17.1 G/DL (14.2-18.0); LYMPHOCYTES % (AUTO) 41.6 % (20.0-45.0); MEAN CORPUSCULAR VOLUME 94 FL (80-99); MONOCYTES % (AUTO) 9.1 % (1.0-10.0); NEUTROPHILS % (AUTO) 46.1 % (45.0-75.0); PLATELET COUNT 315 K/UL (150-450); RED BLOOD COUNT 5.32 M/UL (4.70-6.10); RED CELL DISTRIBUTION WIDTH 11.3 % (11.6-14.8)
--- NOTE | 2019-02-09 15:46 | History & Physical ---
History and Physical History & Physicial Full H&P dictated #[id number]. 53 yo male admitted for participation in [id number] clinical trial. This is the 4th of 5 planned biweekly infusions of IP. He has been well since his last admission. VSS T 97.5 HEENT: nc/at Lungs: clear Cor: reg Abd: soft, NT Ext: no c/c/e Labs Test 02/09/19 14:30 White Blood Count 7.0 K/UL (4.8-10.8) Red Blood Count 5.32 M/UL (4.70-6.10) Hemoglobin 17.1 G/DL (14.2-18.0) Hematocrit 50.1 % (42.0-52.0) Mean Corpuscular Volume 94 FL (80-99) Mean Corpuscular Hemoglobin 32.1 PG (27.0-31.0) Mean Corpuscular Hemoglobin Concent 34.1 G/DL (32.0-36.0) Red Cell Distribution Width 11.3 % (11.6-14.8) Platelet Count 315 K/UL (150-450) Mean Platelet Volume 5.6 FL (6.5-10.1) Neutrophils (%) (Auto) 46.1 % (45.0-75.0) Lymphocytes (%) (Auto) 41.6 % (20.0-45.0) Monocytes (%) (Auto) 9.1 % (1.0-10.0) Eosinophils (%) (Auto) 2.3 % (0.0-3.0) Basophils (%) (Auto) 0.9 % (0.0-2.0) A: 1) Participation in clinical trial; pt doing well 2) HIV, well-controlled 3) diverticulosis 4) h/o HSV 5) h/o anal dysplasia P: Manage per protocol, we will plan on dosing IP at about 8 am tomorrow 02/10. Rikki Landis MD Feb 09, 2019 15:46
[2019-02-09 16:00] VITALS: BP 127/83
--- NOTE | 2019-02-09 17:55 | NUR ---
CASE MANAGEMENT: INITIAL REVIEW PATIENT IS PARTICIPATING IN A CLINICAL TRIAL.
--- NOTE | 2019-02-09 19:20 | NUR ---
HAND-OFF: Report given to Sharron BOSE. Patient in stable condition.
--- NOTE | 2019-02-09 19:20 | NUR ---
NURSE NOTES:Patient received from Nik Garg patient A/A//OX4 . Patieent vss, afebrile no no sob/no n/v noted .Patient ambulated to bathroom Patient instructed to uses call light when needed . will continue to monitor.
[2019-02-09 20:00] VITALS: BP 127/78
--- NOTE | 2019-02-09 21:45 | History and Physical Report ---
DATE OF ADMISSION: 02/09/2019 CHIEF COMPLAINT: The patient is electively admitted for participation in [employer] clinical trial [id number]. HISTORY OF PRESENT ILLNESS: The patient is a 53-year-old man followed by Dr. Live. He has well-controlled human immunodeficiency virus infection. He has chosen to participate in the above clinical trial. He is now admitted for the fourth of 5 planned infusions of investigational product. He has tolerated the first 3 without difficulty or observed adverse events. He has been well since his last admission 2 weeks ago. PAST MEDICAL HISTORY: The patient was diagnosed with human immunodeficiency virus many years ago. He has been most recently on Odefsey for the past several years and has no history of virologic failure. He does have a history of diverticulosis, which is non-active, anal dysplasia, prostate enlargement, and recurrent herpes simplex. MEDICATIONS: Included Odefsey 1 tablet once a day, venlafaxine 225 mg once a day, Valtrex 1 gram a day, and finasteride 5 mg a day. ALLERGIES: No known drug allergies. FAMILY HISTORY: The patient is adopted. SOCIAL HISTORY: The patient does not smoke. 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 REVIEW OF SYSTEMS: The patient denies cough or shortness of breath. He has not had nausea, vomiting, or diarrhea. No dysuria or hematuria at this time. PHYSICAL EXAMINATION: VITAL SIGNS: Included temperature of 97.5, heart rate is 72 and regular, and blood pressure is 128/82. His weight was 202.6 pounds. His respiratory rate was 16. HEENT: Normocephalic and atraumatic. Pupils are equal, round, and reactive. Oropharynx was without thrush or leukoplakia. NECK: Supple. There is no cervical or axillary adenopathy. LUNGS: Clear to auscultation. HEART: Had a regular rhythm without murmurs or gallops. ABDOMEN: Soft and nontender. No hepatosplenomegaly was noted. EXTREMITIES: Without cyanosis, clubbing, or edema. SKIN: Had no rashes evident. NEUROLOGIC: Grossly nonfocal for motor or sensory deficits. LABORATORY DATA: EKG this afternoon was normal. Other laboratories are now pending. IMPRESSION: 1. Participation in [employer] clinical trial [id number]. 2. Human immunodeficiency virus infection, well controlled. 3. Anal dysplasia. 4. Diverticulosis. 5. History of herpes simplex. DISCUSSION: The patient is a 53-year-old admitted for continued participation in clinical trial of [id number] or placebo tomorrow morning via intravenous infusion and we observe the 2 following nights in the hospital with a tentative discharge plan for Friday PLAN: manage per protocol. Rikki Landis M.D. DR: CATHERINE JOB#: [id number] CC: Rikki Landis M.D.; [address] [place] [address]; [place] [address]; Fax#: [phone] MTDD
[2019-02-10] VITALS: BP 118/77
[2019-02-10 04:00] VITALS: BP 120/77
--- NOTE | 2019-02-10 06:30 | NUR ---
NURSE NOTES: ED Staff came to start new IV line patient refused for now until DR. Landis will come . DR.. alexis notified and aware .
--- NOTE | 2019-02-10 07:44 | NUR ---
HAND-OFF: Report given to MELCHOR Garg. Patient endorsed Patient [id number] 02/10 through 09:59 02/10 strict npo..
--- NOTE | 2019-02-10 07:46 | NUR ---
NURSE NOTES: Patient alert x4, on room air, no sign of shortness of breath, no sign of chest pain; NPO except water; NO IV access, MD Landis is aware, ER gonna come to get an IV on him; bed at lowest position, side rails up x2, breaks engaged, call light within reach, will keep monitoring.
[2019-02-10] MEDS ORDERED: Investigational Drug 150 MG in NS 48 ML IV ONE (07:50)
[2019-02-10 08:00] VITALS: BP 129/77
[2019-02-10] MEDS ORDERED: Venlafaxine XR 150mg cap ORAL SCH (09:00)
[2019-02-10] MEDS ORDERED: Venlafaxine HCl 37.5mg Tab ORAL SCH (09:00)
[2019-02-10] MEDS ORDERED: valACYclovir HCL 500mg tab ORAL SCH (09:00)
--- NOTE | 2019-02-10 11:51 | NUR ---
*-* NO INSURANCE INFORMATION TO SEND CLINICALS *-*
[2019-02-10 12:00] VITALS: BP 122/75
[2019-02-10] MEDS: VENLAFAXINE 75 MG ORAL SCH (12:00)
[2019-02-10] MEDS: VALACYCLOVIR 1 GM ORAL SCH (12:50)
[2019-02-10] MEDS: ODEFSEY ORAL SCH (12:50)
[2019-02-10] MEDS: VENLAFAXINE 150 MG ORAL SCH (12:50)
[2019-02-10] MEDS: FINASTERIDE 5 MG ORAL SCH (12:50)
--- NOTE | 2019-02-10 14:00 | NUR ---
NURSE NOTES: Tray for lunch provided to patient.
--- NOTE | 2019-02-10 15:26 | General Progress Note ---
Progress Note Progress Note S: Pt doing well, tolerated infusion of IP this morning without reported or observed AEs O: VSS Afebrlie HEENT: nc/at Neck: supple Lungs: clear a/p Cor: reg without murmurs or gallops Abd: soft, NT Ext: no c/c/e Neuro: non-focal Skin: no rashes A: 1) participation in [id number] 2) HIV, well-controlled 3) h/o depression 4) h/o anal dysplasa P: 1) continue to manage per protocol; if stable, anticipate discharge AM of 02/12 2) check local CBC in AM Rikki Landis MD Feb 10, 2019 15:26
[2019-02-10 16:00] VITALS: BP 136/82
--- NOTE | 2019-02-10 19:20 | NUR ---
HAND-OFF: Report given to DARRIUS Contreras.
--- NOTE | 2019-02-10 19:20 | NUR ---
NURSE NOTES:Patient received from Yordan Garg . Patient in bed . Patient denies any pain at this time,no s/s of distress . call light within reach . bed in low position at all times. will continue to monitor .
[2019-02-10 20:00] VITALS: BP 134/82
[2019-02-11 01:52] VITALS: BP 121/74
--- NOTE | 2019-02-11 07:45 | NUR ---
NURSE NOTES: WALKING ROUNDS DONE WITH OUTGOING RN. PATIENT IN BED AROUSABLE. QUESTIONS ANSWERED;NEEDS MET. DISCUSSED PLAN OF CARE FOR THE DAY. DENIES ANY ISSUES. CALL LIGHT WITHIN REACH. WILL CONTINUE TO MONITOR.
[2019-02-11 08:00] VITALS: BP 123/80
[2019-02-11 08:30] LABS: BASOPHILS % (AUTO) 1.2 % (0.0-2.0); EOSINOPHILS % (AUTO) 2.7 % (0.0-3.0); HEMATOCRIT 47.7 % (42.0-52.0); HEMOGLOBIN 16.4 G/DL (14.2-18.0); LYMPHOCYTES % (AUTO) 34.7 % (20.0-45.0); MEAN CORPUSCULAR VOLUME 93 FL (80-99); MONOCYTES % (AUTO) 9.3 % (1.0-10.0); NEUTROPHILS % (AUTO) 52.2 % (45.0-75.0); PLATELET COUNT 261 K/UL (150-450); RED BLOOD COUNT 5.14 M/UL (4.70-6.10); RED CELL DISTRIBUTION WIDTH 10.9 % (11.6-14.8); WHITE BLOOD COUNT 6.1 K/UL (4.8-10.8)
[2019-02-11] MEDS: VENLAFAXINE 150 MG ORAL SCH (08:41)
[2019-02-11] MEDS: FINASTERIDE 5 MG ORAL SCH (08:41)
[2019-02-11] MEDS: ODEFSEY ORAL SCH (08:41)
[2019-02-11] MEDS: VENLAFAXINE 75 MG ORAL SCH (08:41)
[2019-02-11] MEDS: VALACYCLOVIR 1 GM ORAL SCH (08:41)
[2019-02-11 12:00] VITALS: BP 129/89
--- NOTE | 2019-02-11 12:26 | NUR ---
CASE MANAGEMENT: CLINICAL TRIAL
--- NOTE | 2019-02-11 15:36 | General Progress Note ---
Progress Note Progress Note S: Patient is doing well, no new complaints O: VSS Afebrile HEENT: nc/at Neck: supple Lungs: clear Cor: reg Abd: soft, NT Skin: no rashes Neuro: non-focal Labs Test 02/09/19 14:30 02/11/19 08:17 White Blood Count 7.0 K/UL (4.8-10.8) 6.1 K/UL (4.8-10.8) Red Blood Count 5.32 M/UL (4.70-6.10) 5.14 M/UL (4.70-6.10) Hemoglobin 17.1 G/DL (14.2-18.0) 16.4 G/DL (14.2-18.0) Hematocrit 50.1 % (42.0-52.0) 47.7 % (42.0-52.0) Mean Corpuscular Volume 94 FL (80-99) 93 FL (80-99) Mean Corpuscular Hemoglobin 32.1 PG (27.0-31.0) 31.9 PG (27.0-31.0) Mean Corpuscular Hemoglobin Concent 34.1 G/DL (32.0-36.0) 34.4 G/DL (32.0-36.0) Red Cell Distribution Width 11.3 % (11.6-14.8) 10.9 % (11.6-14.8) Platelet Count 315 K/UL (150-450) 261 K/UL (150-450) Mean Platelet Volume 5.6 FL (6.5-10.1) 5.6 FL (6.5-10.1) Neutrophils (%) (Auto) 46.1 % (45.0-75.0) 52.2 % (45.0-75.0) Lymphocytes (%) (Auto) 41.6 % (20.0-45.0) 34.7 % (20.0-45.0) Monocytes (%) (Auto) 9.1 % (1.0-10.0) 9.3 % (1.0-10.0) Eosinophils (%) (Auto) 2.3 % (0.0-3.0) 2.7 % (0.0-3.0) Basophils (%) (Auto) 0.9 % (0.0-2.0) 1.2 % (0.0-2.0) A: 1) participation in [id number] clinical trial, doing well 2) HIV, well-controlled 3) depression 4) anal dysplasia hx P: 1) continue to manage per protocol 2) monitor labs; noted plt decrease from 315K to 262K 3) anticipate discharge in AM with f/u in clinic next week Rikki Landis MD Feb 11, 2019 15:36
[2019-02-11 16:00] VITALS: BP 138/86
[2019-02-11] MEDS ORDERED: NS 275ml ONE (17:09)
[2019-02-11] MEDS ORDERED: NS 500ML ONE (17:09)
--- NOTE | 2019-02-11 18:44 | NUR ---
NURSE NOTES: UNEVENTFUL DAY. PATIENT REMAINS STABLE.
--- NOTE | 2019-02-11 18:54 | NUR ---
NURSE NOTES: Patient received from Luh Garg .Patient A/A/OX4 LYING IN BED . Patient denies any pain at this time . no sob/ no n/v noted at this time . Call light within reach . bed in low position at all times .
--- NOTE | 2019-02-11 18:54 | NUR ---
HAND-OFF: Report given to DANIEL THAKKAR LVN.
--- NOTE | 2019-02-11 18:54 | NUR ---
NURSE NOTES:Patient received from Luh Garg Patient A/A/OX4. Patient denies any pain at this time . no s/s of distress call light within reach . bed in low position at all times .
[2019-02-11 20:00] VITALS: BP 135/78
[2019-02-12 04:00] VITALS: BP 128/77
--- NOTE | 2019-02-12 07:50 | NUR ---
HAND-OFF: Report given to GEORGES Garg Patient to be discharge home today 02/12/19.Patient vss, afebrile no s/s of distress noted .patient discharged instructions and all personal belongings checked and given to patient. Patient awaiting to DR. BROWN call light within reach . bed in low position endorsed patient to GEORGES Garg
--- NOTE | 2019-02-12 07:55 | NUR ---
NURSE NOTES: Patient lying in bed awake. No complain of pain or distress at this time. Skin intact and dry. Bed lowest position. Call light within reach. Will continue to monitor.
[2019-02-12 08:23] LABS: BASOPHILS % (AUTO) 1.1 % (0.0-2.0); EOSINOPHILS % (AUTO) 3.1 % (0.0-3.0); HEMATOCRIT 46.7 % (42.0-52.0); HEMOGLOBIN 16.3 G/DL (14.2-18.0); LYMPHOCYTES % (AUTO) 33.9 % (20.0-45.0); MEAN CORPUSCULAR VOLUME 92 FL (80-99); MONOCYTES % (AUTO) 8.6 % (1.0-10.0); NEUTROPHILS % (AUTO) 53.3 % (45.0-75.0); PLATELET COUNT 270 K/UL (150-450); RED BLOOD COUNT 5.09 M/UL (4.70-6.10); RED CELL DISTRIBUTION WIDTH 10.7 % (11.6-14.8); WHITE BLOOD COUNT 6.5 K/UL (4.8-10.8)
--- NOTE | 2019-02-12 09:20 | NUR ---
NURSE NOTES: Patient discharged in stable condition. Discharge instruction given to patient and verbalized understanding. Belonging and home medication given to patient. ID and IV removed. Patient ambulated out with all personal belongings with steady gait.
--- NOTE | 2019-02-13 08:15 | Discharge Summary ---
DATE OF ADMISSION: 02/09/2019 DATE OF DISCHARGE: 02/12/2019 DISCHARGE DIAGNOSES: 1. Participation in [employer] clinical trial [id number]. 2. HIV infection, well controlled. 3. Depressive disorder. 4. Anal dysplasia. 5. History of prostatic hypertrophy. HISTORY OF PRESENT ILLNESS AND HOSPITAL COURSE: The patient is a 53-year-old man, who is participating in the above clinical trial. He was admitted for his fourth of 5 planned biweekly infusions of investigational product. He tolerated the infusion on the second hospital day without any observed adverse events. His laboratory results have been stable and the patient was discharged in stable condition to home this morning. DISCHARGE MEDICATIONS: Include Odefsey one tablet daily, venlafaxine total 225 mg daily, finasteride 5 mg once a day, and Valtrex 1 gram once a day. FOLLOWUP: Follow up will be in the office in one weeks' time. Rikki Landis M.D. DR: VIJAY JOB#: [id number] CC: Rikki Landis M.D.; [address] [facility] # [address]; Fax#: [phone]
== END 2019-02-12 09:20 | disposition home or self-care (01) | DRG 976 ==
LOC: 3E 14:19
DX: B20 Human immunodeficiency virus [HIV] disease (principal); B00.9 Herpesviral infection, unspecified; Z00.6 Encounter for examination for normal comparison and control in clinical research program; K57.90 Diverticulosis of intestine, part unspecified, without perforation or abscess without bleeding; K62.82 Dysplasia of anus; N40.0 Benign prostatic hyperplasia without lower urinary tract symptoms
CPT/HCPCS: 36415; 85025

== ENCOUNTER 2019-02-23 14:26 | Inpatient (IN) | payer OTHER ==
[~2019-02-23] VITALS: Ht 30.5 cm; Wt 90.3 kg
--- NOTE | 2019-02-23 15:00 | NUR ---
NURSE NOTES: Admitted pt from home under dr. Martin with stable condition pt is alert and oriented x4. able to ambulate and verbalize needs. all admit order input by dr. martin. skin is intact. all belongings checked and kept at bedside. denies any pain. will continue to monitor
[2019-02-23 15:24] LABS: BASOPHILS % (AUTO) 0.9 % (0.0-2.0); EOSINOPHILS % (AUTO) 2.2 % (0.0-3.0); HEMATOCRIT 43.2 % (42.0-52.0); HEMOGLOBIN 15.2 G/DL (14.2-18.0); LYMPHOCYTES % (AUTO) 32.7 % (20.0-45.0); MEAN CORPUSCULAR VOLUME 91 FL (80-99); MONOCYTES % (AUTO) 9.7 % (1.0-10.0); NEUTROPHILS % (AUTO) 54.4 % (45.0-75.0); PLATELET COUNT 266 K/UL (150-450); RED BLOOD COUNT 4.76 M/UL (4.70-6.10); RED CELL DISTRIBUTION WIDTH 10.5 % (11.6-14.8); WHITE BLOOD COUNT 6.2 K/UL (4.8-10.8)
--- NOTE | 2019-02-23 15:28 | History & Physical ---
History and Physical History & Physicial Full H&P dictated #[id number]. 53 yo male electively admitted for 5th of 5 planned biweekly infusions of GS- 9722 (or placebo). He has had no new complaints since his last visit. O:T 98.8 BP nl HEENT: nc/at Lungs: clear Cor: reg Abd: soft, NT Skin: no rashes A: 1) HIV, well controlled 2) diverticulosis 3) h/o anal dysplasia 4) h/o HSV 5) depression P: 1) manage per [id number] protocol; anticipate dosing of IP tomorrow morning at 8 AM. 2) continue outpatient medications Rikki Landis MD Feb 23, 2019 15:28
[2019-02-23 16:00] VITALS: BP 121/68
--- NOTE | 2019-02-23 19:20 | NUR ---
NURSE NOTES: Pt resting in bed comfortably. Denies pain at this time, instructed to call for assistance as needed. Call light within reach.
--- NOTE | 2019-02-23 19:31 | NUR ---
HAND-OFF: Report given to DARRIUS Kirby.
[2019-02-23 20:00] VITALS: BP 130/67
--- NOTE | 2019-02-23 22:30 | History and Physical Report ---
DATE OF ADMISSION: 02/23/2019 CHIEF COMPLAINT: The patient is electively admitted for continued participation in [employer] clinical trial [id number]. HISTORY OF PRESENT ILLNESS: The patient is a 53-year-old man followed by my associate, Dr. Live. The patient has well-controlled human immunodeficiency virus infection and has elected to participate in this clinical trial. He is admitted now for the fifth of 5 planned infusions of investigational product. He has tolerated the first 4 doses without any observed adverse events. He has no interim complaints since his last visit 2 weeks ago. PAST MEDICAL HISTORY: The patient was diagnosed many years ago with human immunodeficiency virus infection. He has been on Odefsey for several years and has had no history of virologic failure. There is a history of prostate enlargement, herpes simplex, anal dysplasia, and diverticulosis. MEDICATIONS: As an outpatient include Valtrex 1 gram a day, finasteride 5 mg once a day, Odefsey tablets 1 a day, and venlafaxine 225 mg total once a day. ALLERGIES: No known drug allergies. FAMILY HISTORY: The patient is adopted. SOCIAL HISTORY: The patient does not smoke. 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 REVIEW OF SYSTEMS: Denies fever or chills. Denies cough or shortness of breath. No chest pain. No nausea, vomiting, or diarrhea. No dysuria or hematuria. No rashes. No change in mental status. PHYSICAL EXAM: VITAL SIGNS: Temperature of 98.9 degrees Fahrenheit, heart rate of 71, blood pressure 129/84, and heart rate of 73. His weight was 203 pounds. His respiratory rate was 15. HEENT: Normocephalic, atraumatic. Pupils are equal, round, and reactive. Oropharynx was without thrush or leukoplakia. NECK: Supple. No cervical or axillary adenopathy. LUNGS: Clear to auscultation. HEART: Regular rhythm without murmurs or gallops. ABDOMEN: Soft and nontender. No hepatosplenomegaly. EXTREMITIES: Without cyanosis, clubbing, or edema. NEUROLOGIC: Grossly nonfocal for motor or sensory deficits. SKIN: Had no rashes evident. LABORATORY DATA: Pending. IMPRESSION: 1. Clinical trial participant. 2. Human immunodeficiency virus infection, well controlled. 3. History of herpes simplex. 4. History of prostate enlargement. 5. History of anal dysplasia. 6. Diverticulosis. DISCUSSION: The patient is a very pleasant 53-year-old man, who is electively admitted for his continuing participation in the above captioned clinical trial. We will anticipate dosing of investigational product tomorrow morning at 8 a.m. under plan managed per protocol. Rikki Landis M.D. DR: CATHERINE JOB#: [id number] CC: Rikki Landis M.D.; [address] [place] [address], [address]; [place] [address]; Fax#: [phone]
[2019-02-24] VITALS: BP 122/79
--- NOTE | 2019-02-24 07:24 | NUR ---
HAND-OFF: Report given to DARRIUS Richards.
[2019-02-24 08:00] VITALS: BP 122/75
[2019-02-24] MEDS ORDERED: Investigational Drug 150 MG in NS 48 ML IV ONE (08:00)
--- NOTE | 2019-02-24 08:00 | NUR ---
NURSE NOTES: AWAKE/ALERT. NO C/O PAIN. IN NO DISTRESS. DR BROWN WITH PT IN THE ROOM. MEDICINE GIVEN ORDERED.
--- NOTE | 2019-02-24 10:49 | NUR ---
*-* NO INSURANCE INFORMATION TO SEND CLINICALS OR REVIEWS *-*
[2019-02-24 12:00] VITALS: BP 121/84
--- NOTE | 2019-02-24 12:20 | NUR ---
CASE MANAGEMENT: CLINICAL TRIAL NO REVIEWS OR INTERQUAL NEEDED
[2019-02-24] MEDS: VENLAFAXINE 150 MG ORAL SCH (12:33)
[2019-02-24] MEDS: VALACYCLOVIR 1 GM ORAL SCH (12:33)
[2019-02-24] MEDS: FINASTERIDE 5 MG ORAL SCH (12:33)
[2019-02-24] MEDS: ODEFSEY ORAL SCH (12:34)
[2019-02-24] MEDS: VENLAFAXINE 75 MG ORAL SCH (12:34)
--- NOTE | 2019-02-24 16:33 | General Progress Note ---
Progress Note Progress Note S: Pt has no new complaints, tolerated infusion of IP this morning without incident O: VSS HEENT: nc/at Neck: supple Lungs: clear Cor: reg Abd: soft, NT Ext: no c/c/e Skin: no rashes Labs Test 02/23/19 15:00 White Blood Count 6.2 K/UL (4.8-10.8) Red Blood Count 4.76 M/UL (4.70-6.10) Hemoglobin 15.2 G/DL (14.2-18.0) Hematocrit 43.2 % (42.0-52.0) Mean Corpuscular Volume 91 FL (80-99) Mean Corpuscular Hemoglobin 32.0 PG (27.0-31.0) Mean Corpuscular Hemoglobin Concent 35.2 G/DL (32.0-36.0) Red Cell Distribution Width 10.5 % (11.6-14.8) Platelet Count 266 K/UL (150-450) Mean Platelet Volume 5.5 FL (6.5-10.1) Neutrophils (%) (Auto) 54.4 % (45.0-75.0) Lymphocytes (%) (Auto) 32.7 % (20.0-45.0) Monocytes (%) (Auto) 9.7 % (1.0-10.0) Eosinophils (%) (Auto) 2.2 % (0.0-3.0) Basophils (%) (Auto) 0.9 % (0.0-2.0) A: 1) Participation in [employer] clinical trial [id number]. Patient is doing well 2) HIV, well controlled 3) Depression, on medication 4) h/o anal dysplasia P: 1) continue management per protocol 2) will observe tonight and tomorrow night in hospital Rikki Landis MD Feb 24, 2019 16:33
--- NOTE | 2019-02-24 19:00 | NUR ---
NURSE NOTES: RESTING IN BED.IN NO DISTRESS.
--- NOTE | 2019-02-24 19:40 | NUR ---
NURSE NOTES: Report taken from DARRIUS Richards. Patient is awake and in bed, A&Ox4. No signs of distress on room air. No symptoms or complaints of pain. Patient is here for clinical trial. Both IVs were taken out, trial team and MD are aware. Skin is intact. vitals only to be done at 0200 per MD order. Bed in lowest position, call light within reach.
--- NOTE | 2019-02-24 19:48 | NUR ---
HAND-OFF: Report given to Kelly SWENSON RN.
[2019-02-25 02:00] VITALS: BP 115/77
--- NOTE | 2019-02-25 07:24 | NUR ---
HAND-OFF: Report given to DARRIUS Arvizu. patient is awake and alert. VS stable. Clinical team will be in to draw labs. No IV sites, and clinical RNs aware.
--- NOTE | 2019-02-25 07:25 | NUR ---
NURSE NOTES: WALKING ROUNDS DONE WITH OUTGOING RN. PATIENT AWAKE IN BED HAVING BREAKFAST. NEEDS MET; QUESTIONS ANSWERED. DISCUSSED PLAN OF CARE OF THE DAY. ACKNOWLEDGED UNDERSTANDING. BED IN LOW AND LOCKED POSITION. CALL LIGHT WITHIN REACH.
[2019-02-25] MEDS: VENLAFAXINE 150 MG ORAL SCH (08:12)
[2019-02-25] MEDS: VALACYCLOVIR 1 GM ORAL SCH (08:12)
[2019-02-25] MEDS: FINASTERIDE 5 MG ORAL SCH (08:12)
[2019-02-25] MEDS: ODEFSEY ORAL SCH (08:12)
[2019-02-25] MEDS: VENLAFAXINE 75 MG ORAL SCH (08:12)
[2019-02-25 08:19] LABS: BASOPHILS % (AUTO) 1.3 % (0.0-2.0); EOSINOPHILS % (AUTO) 2.9 % (0.0-3.0); HEMATOCRIT 47.4 % (42.0-52.0); HEMOGLOBIN 16.3 G/DL (14.2-18.0); LYMPHOCYTES % (AUTO) 34.7 % (20.0-45.0); MEAN CORPUSCULAR VOLUME 93 FL (80-99); MONOCYTES % (AUTO) 8.8 % (1.0-10.0); NEUTROPHILS % (AUTO) 52.2 % (45.0-75.0); PLATELET COUNT 281 K/UL (150-450); RED BLOOD COUNT 5.11 M/UL (4.70-6.10); RED CELL DISTRIBUTION WIDTH 10.8 % (11.6-14.8); WHITE BLOOD COUNT 5.8 K/UL (4.8-10.8)
[2019-02-25 12:00] VITALS: BP 149/93
--- NOTE | 2019-02-25 14:23 | General Progress Note ---
Progress Note Progress Note S: No new complaints, pt is doing well O: VSS Afebrile. HEENT: nc/at Lungs: clear Cor: reg Abd: soft, NT Ext: no c/c/e Skin: no rash Labs Test 02/23/19 15:00 02/25/19 08:10 White Blood Count 6.2 K/UL (4.8-10.8) 5.8 K/UL (4.8-10.8) Red Blood Count 4.76 M/UL (4.70-6.10) 5.11 M/UL (4.70-6.10) Hemoglobin 15.2 G/DL (14.2-18.0) 16.3 G/DL (14.2-18.0) Hematocrit 43.2 % (42.0-52.0) 47.4 % (42.0-52.0) Mean Corpuscular Volume 91 FL (80-99) 93 FL (80-99) Mean Corpuscular Hemoglobin 32.0 PG (27.0-31.0) 31.9 PG (27.0-31.0) Mean Corpuscular Hemoglobin Concent 35.2 G/DL (32.0-36.0) 34.5 G/DL (32.0-36.0) Red Cell Distribution Width 10.5 % (11.6-14.8) 10.8 % (11.6-14.8) Platelet Count 266 K/UL (150-450) 281 K/UL (150-450) Mean Platelet Volume 5.5 FL (6.5-10.1) 5.8 FL (6.5-10.1) Neutrophils (%) (Auto) 54.4 % (45.0-75.0) 52.2 % (45.0-75.0) Lymphocytes (%) (Auto) 32.7 % (20.0-45.0) 34.7 % (20.0-45.0) Monocytes (%) (Auto) 9.7 % (1.0-10.0) 8.8 % (1.0-10.0) Eosinophils (%) (Auto) 2.2 % (0.0-3.0) 2.9 % (0.0-3.0) Basophils (%) (Auto) 0.9 % (0.0-2.0) 1.3 % (0.0-2.0) A: 1) Participation in [id number] 2) HIV, well controlled 3) h/o anal dysplasia 4) h/o HSV P: 1) Continue management per protocol 2) Anticipate discharge tomorrow AM if stable Rikki Landis MD Feb 25, 2019 14:23
[2019-02-25 16:00] VITALS: BP 127/87
--- NOTE | 2019-02-25 18:24 | NUR ---
NURSE NOTES: UNEVENTFUL DAY. PATIENT REMAINS STABLE.
[2019-02-25] MEDS ORDERED: NS 275ml ONE (19:17)
[2019-02-25] MEDS ORDERED: Tubing IV Secondary IV ONE (19:17)
--- NOTE | 2019-02-25 19:52 | NUR ---
HAND-OFF: Report given to NOHEMY BEJARANO RN.
[2019-02-25 20:00] VITALS: BP 140/92
--- NOTE | 2019-02-25 20:30 | NUR ---
NURSE NOTES: Pt is in bed, awake and alert. No acute distress noted. Pt appears to be comfortable. Bed locked low in position,side rails up and call light within Reach.
[2019-02-25] MEDS ORDERED: Patient's Own Med ORAL (22:21)
[2019-02-26] VITALS: BP 129/85
[2019-02-26 04:00] VITALS: BP 127/84
--- NOTE | 2019-02-26 07:25 | NUR ---
HAND-OFF: Report given to Amisha Solano RN.Informed Amisha that Pt is due for discharge this morning after 0800AM.
--- NOTE | 2019-02-26 08:09 | NUR ---
NURSE NOTES: Pt is in stable in condition. Nurse at bedside monitoring pt. Labs pending. Will be taken by nurse at bedside. Pt here for clinical trials under Dr Landis
[2019-02-26 08:43] LABS: EOSINOPHILS % (AUTO) 3.2 % (0.0-3.0); HEMATOCRIT 49.1 % (42.0-52.0); LYMPHOCYTES % (AUTO) 32.6 % (20.0-45.0); MEAN CORPUSCULAR VOLUME 93 FL (80-99); MONOCYTES % (AUTO) 9.5 % (1.0-10.0); NEUTROPHILS % (AUTO) 53.8 % (45.0-75.0); PLATELET COUNT 296 K/UL (150-450); RED BLOOD COUNT 5.29 M/UL (4.70-6.10); RED CELL DISTRIBUTION WIDTH 10.7 % (11.6-14.8); WHITE BLOOD COUNT 5.9 K/UL (4.8-10.8)
[2019-02-26] MEDS: FINASTERIDE 5 MG ORAL SCH ×2 (08:57→08:58)
[2019-02-26] MEDS: VENLAFAXINE 150 MG ORAL SCH (08:57)
[2019-02-26] MEDS: ODEFSEY ORAL SCH (08:57)
[2019-02-26] MEDS: VALACYCLOVIR 1 GM ORAL SCH (08:57)
[2019-02-26] MEDS: VENLAFAXINE 75 MG ORAL SCH (08:58)
--- NOTE | 2019-02-26 09:30 | NUR ---
NURSE NOTES: Pt discharge provided with discharge packet. Home medications from pharmacy. pt given Dr Landis number in discharge packet. Did nt have any questions in regards to home care. Pt signed belongings list. 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 Pt is in stable condition, ambulatory. Participated in clinical trials under supervision of DR. Landis
--- NOTE | 2019-02-27 02:45 | Discharge Summary ---
DATE OF ADMISSION: 02/23/2019 DATE OF DISCHARGE: 02/26/2019 DISCHARGE DIAGNOSES: 1. Participation in [employer] clinical trial [id number]. 2. HIV infection, well controlled. 3. History of herpes simplex infection. 4. Depression, on medication. 5. History of prostate enlargement. 6. History of anal dysplasia. 7. Diverticulosis. HISTORY OF PRESENT ILLNESS AND HOSPITAL COURSE: The patient is a 53-year-old man who is admitted on the 02/23/2019 for the biweekly infusions [id number] (or placebo). He was infused on the 02/24/2019 and there were no observed adverse events. The patient did well on the remaining 2 nights in the hospital and was discharged in good condition to home. DISCHARGE MEDICATIONS: Include 1 tablet a day, venlafaxine 225 mg total once a day, finasteride 5 mg once a day, and Valtrex 1 g a day. The patient will be followed up in my office next week. Rikki Landis M.D. DR: BRYON JOB#: [id number] CC: Rikki Landis M.D.; [address] [place] [address], [address]; [place] [address]; Fax#: [phone]
== END 2019-02-26 09:10 | disposition home or self-care (01) | DRG 976 ==
LOC: 3E 14:39
DX: B20 Human immunodeficiency virus [HIV] disease (principal); B00.9 Herpesviral infection, unspecified; Z00.6 Encounter for examination for normal comparison and control in clinical research program; K57.90 Diverticulosis of intestine, part unspecified, without perforation or abscess without bleeding; K62.82 Dysplasia of anus; N40.0 Benign prostatic hyperplasia without lower urinary tract symptoms
CPT/HCPCS: 36415; 85025